=== PATIENT | male | born 1940 | race Caucasian/White ===

== ENCOUNTER → 2017-03-01 | Outpatient (REF) | payer MEDICARE | LOC: M LAB REF 15:30 | PROVIDERS: ATTEND Ophthalmology | DX: H02.831 Dermatochalasis of right upper eyelid (principal); H02.834 Dermatochalasis of left upper eyelid ==

== ENCOUNTER → 2024-04-02 | Outpatient (REF) | payer MEDICARE ==
[~2024-04-02] MED LIST: ATEN25TA PO; DOXY20TA6 PO; HYDR50TA70 PO; LEVO25TA5 PO; OMEP40CA4 PO; SIMB1SUS OU; SIMV40TA20 PO; SYST1SOL4 OU; TRAZ-252 PO
== END ==
LOC: M SFHCDERM 17:17
PROVIDERS: ATTEND Dermatology
DX: C44.42 Squamous cell carcinoma of skin of scalp and neck (principal)

== ENCOUNTER → 2024-04-21 | Outpatient (CLI) | payer MEDICARE ==
[~2024-04-21] MED LIST changes: +FURO20TA2 PO; +GLIM2TAB29 PO; +LISI20TA35 PO; +MECL-136 PO; +METF-838 PO; +PANT40TA29 PO; +ZOLP10TA2 PO
== END ==
LOC: M ONCR 14:30
PROVIDERS: ATTEND General Practice
DX: C44.329 Squamous cell carcinoma of skin of other parts of face (principal); F17.220 Nicotine dependence, chewing tobacco, uncomplicated; Z88.5 Allergy status to narcotic agent; Z79.84 Long term (current) use of oral hypoglycemic drugs; Z79.899 Other long term (current) drug therapy; Z79.890 Hormone replacement therapy; Z98.890 Other specified postprocedural states

== ENCOUNTER 2024-05-06 13:12 | Outpatient (RCR) | payer MEDICARE | END 2024-05-09 | LOC: M ONCR 13:12 | PROVIDERS: ATTEND General Practice | DX: Z51.0 Encounter for antineoplastic radiation therapy (principal); C44.320 Squamous cell carcinoma of skin of unspecified parts of face ==

== ENCOUNTER → 2024-06-08 | Outpatient (RCR) | payer MEDICARE | LOC: M ONCR 06-04 12:32 | PROVIDERS: ATTEND General Practice | DX: Z51.0 Encounter for antineoplastic radiation therapy (principal); C44.320 Squamous cell carcinoma of skin of unspecified parts of face ==

== ENCOUNTER 2024-07-01 11:05 | Outpatient (RCR) | payer MEDICARE | END 2024-07-09 | LOC: M ONCR 11:05 | PROVIDERS: ATTEND General Practice | DX: Z51.0 Encounter for antineoplastic radiation therapy (principal); C44.320 Squamous cell carcinoma of skin of unspecified parts of face ==

== ENCOUNTER → 2024-08-04 | Outpatient (CLI) | payer MEDICARE ==
[~2024-08-04] MED LIST changes: +TRAM50TA2 PO
== END ==
LOC: M ONCR 11:07
PROVIDERS: ATTEND General Practice
DX: C44.320 Squamous cell carcinoma of skin of unspecified parts of face (principal); D04.5 Carcinoma in situ of skin of trunk; Z98.890 Other specified postprocedural states; G89.3 Neoplasm related pain (acute) (chronic)

== ENCOUNTER → 2025-01-05 | Outpatient (CLI) | payer MEDICARE | LOC: M ONCR 10:09 | PROVIDERS: ATTEND General Practice | DX: Z08 Encounter for follow-up examination after completed treatment for malignant neoplasm (principal); Z85.828 Personal history of other malignant neoplasm of skin; F17.220 Nicotine dependence, chewing tobacco, uncomplicated; Z92.3 Personal history of irradiation; Z88.5 Allergy status to narcotic agent; Z79.84 Long term (current) use of oral hypoglycemic drugs; Z79.890 Hormone replacement therapy; Z79.899 Other long term (current) drug therapy ==